=== PATIENT | male | born 1990 | race Caucasian/White ===

== ENCOUNTER 2020-08-23 14:33 | Emergency (ER) | payer OTHER ==
[~2020-08-23] VITALS: Ht 182.9 cm; Wt 100.5 kg
[2020-08-23] MEDS ORDERED: KETOROLAC 60MG 2ML VIAL IM ONE (15:45)
--- NOTE | 2020-08-23 16:02 | REP ---
INDICATION: fall on ice. COMPARISON: None. TECHNIQUE: Five views lumbosacral spine. FINDINGS: There is no compression fracture. There is normal alignment and lumbar lordosis. There is no spondylolysis. Disc spaces are well preserved. Posterior elements are intact. There is slight curvature toward the right. There appears to be a tiny subcentimeter calculus in the upper pole the left kidney and another in the lower pole the right kidney. IMPRESSION: No fracture or dislocation. <Electronically signed by Andrew Graff > 08/23/20 5022
[2020-08-23] MEDS ORDERED: CYCL5TAB PO (16:12)
[2020-08-23] MEDS ORDERED: KETO10TAB PO (16:13)
[2020-08-23 16:17] VITALS: BP 138/87
== END 2020-08-23 16:21 | disposition home or self-care (01) ==
LOC: M ED 14:33
DX: S39.012A Strain of muscle, fascia and tendon of lower back, initial encounter (principal); X50.0XXA Overexertion from strenuous movement or load, initial encounter; Y92.9 Unspecified place or not applicable; Y93.H1 Activity, digging, shoveling and raking; Y99.1 Military activity; R01.1 Cardiac murmur, unspecified
CPT/HCPCS: 72110; 96372; 99283; J1885